=== PATIENT | female | born 1985 | race Caucasian/White ===

== ENCOUNTER 2018-11-16 12:15 | Emergency (ER) | payer MEDICAID ==
[2018-11-16 12:30] VITALS: BP 122/74
[2018-11-16] MEDS ORDERED: LIDOCAINE 2% VISCOUS SOLN 20 ML UDCUP PO ONE (13:27)
--- NOTE | 2018-11-16 13:30 | ER Document Report ---
HPI - HPI Time Seen by Provider: 11/16/18 13:17 Pain Level: 5 Notes: Patient is a 33-year-old female who presents to the ED complaining of left lower dental pain from 20-17 chronically but increased x1 day. She has not noticed any obvious abscess or purulent discharge. Patient states that she is still able to eat and drink, but does have a decreased p.o. intake due to the pain. She has tried some [id number] meds with minimal relief. Pt recently moved from [place] and has an appointment scheduled next week with a dentist. No other concerns or complaints. Denies any headache, fever, head injury, neck pain, hoarseness, drooling, URI, sore throat, chest pain, palpitations, syncope, cough, shortness of breath, wheeze, dyspnea, abdominal pain, nausea/vomiting/diarrhea, urinary retention, dysuria, hematuria, or rash. - ROS Systems Reviewed and Negative: Yes All other systems reviewed and negative - CONSTITUTIONAL Constitutional: DENIES: Fever, Chills - REPRODUCTIVE Reproductive: DENIES: : Past Medical History - Social History Smoking Status: Never Smoker Family History: Reviewed & Not Pertinent Patient has suicidal ideation: No Patient has homicidal ideation: No Renal/ Medical History: Denies: Hx Peritoneal Dialysis Vertical Provider Document - CONSTITUTIONAL Agree With Documented VS: Yes Notes: PHYSICAL EXAMINATION: GENERAL: Well-appearing, well-nourished and in no acute distress. HEAD: Atraumatic, normocephalic. EYES: Pupils equal round and reactive to light, extraocular movements intact, sclera anicteric, conjunctiva are normal. ENT: EAC clear b/l. TM's intact b/l without erythema, fluid, or perforation. Nares patent and without discharge. oropharynx clear without exudates. No tonsilar hypertrophy or erythema. Moist mucous membranes. No sinus tenderness. Uvula midline. No palatine shift. No tongue protrusion. No respiratory compromise. Mouth: Poor dentition. + Severe carotid and decayed teeth from 20-17 with mild gingivitis. No obvious abscess or discharge noted. No facial swelling. + tenderness to tooth #20-17. NECK: Normal range of motion, supple without lymphadenopathy. No rigidity/meningismus. LUNGS: Breath sounds clear to auscultation bilaterally and equal. No wheezes rales or rhonchi. HEART: Regular rate and rhythm without murmurs, rubs, gallops. NEUROLOGICAL: Cranial nerves grossly intact. Normal speech, normal gait. PSYCH: Normal mood, normal affect. SKIN: Warm, Dry, normal turgor, no rashes or lesions noted. - INFECTION CONTROL TRAVEL OUTSIDE OF THE [place] IN LAST 30 DAYS: No Course - Re-evaluation Re-evalutation: 11/16/18 13:28 Patient is an afebrile, well-hydrated, 33-year-old female who presents to the ED with dental pain, suspect nerve root etiology versus infection. Vitals are acce ptable. PE is otherwise unremarkable. No I&D, labs, or imaging warranted at this time based on H&P. Viscous lidocaine dispensed today. I will send her home with a prescription for penicillin and Motrin. Low suspicion for any meningitis, sepsis, peritonsillar/pharyngeal abscess, respiratory compromise, Harley's, temporal arteritis, or other emergent systemic condition at this time. Patient is aware this condition can change from initial presentation and he needs to monitor symptoms closely. Conservative measures otherwise for symptoms. Keep appointment with dentist. Recheck with your PCM this week as well. Return to the ED with any worsening/concerning symptoms otherwise as reviewed in discharge. Patient is in agreement. - Vital Signs Vital signs: Temp Pulse Resp BP Pulse Ox 98.6 F 75 16 122/74 95 11/16/18 12:29 11/16/18 12:29 11/16/18 12:29 11/16/18 12:29 11/16/18 12:29 Discharge - Discharge Clinical Impression: Pain, dental Condition: Stable Disposition: HOME, SELF-CARE Instructions: Toothache ([facility]), Penicillin V K ([facility]) Additional Instructions: [place] and floss twice daily Maintain fluid intake Take antibiotics as directed Mouthwash, salt water gargles, peroxide rinse as needed Tylenol/ibuprofen as needed Recheck with PCM this week Keep appointment with dentist* Return to the ED with any worsening symptoms and/or development of fever, headache, facial swelling, swelling of lips/tongue/throat, trouble swallowing, drooling, hoarseness, neck pain/stiffness, chest pain, palpitations, syncope, shortness of breath, trouble breathing, abdominal pain, n/v/d, numbness/tingling, or other worsening symptoms that are concerning to you. Prescriptions: Ibuprofen [Motrin 800 mg Tablet] 800 mg PO Q8H PRN #15 tab PRN Reason: Penicillin V Potassium [Penicillin Vk 250 mg Tablet] 500 mg PO BID #40 tablet Referrals: [facility] [Provider Group] - Follow up as needed
== END 2018-11-16 13:58 | disposition home or self-care (01) ==
LOC: ER 12:15
DX: K08.9 Disorder of teeth and supporting structures, unspecified (principal)
CPT/HCPCS: J3490

== ENCOUNTER 2019-02-26 20:14 | Emergency (ER) | payer MEDICAID ==
--- NOTE | 2019-02-26 20:50 | ER Document Report ---
ED Medical Screen (RME) - General Chief Complaint: Jaw Pain Stated Complaint: ABSCESS,JAW SWELLING Time Seen by Provider: 02/26/19 20:46 Mode of Arrival: Ambulatory Information source: Patient Notes: 33-year-old female presented to ED for complaint of pain and swelling to her left lower jaw with swelling to the neck. Patient is alert oriented respirations regular nonlabored speaking in full sentences walks with a even steady gait. She is no acute distress at this time. She is having no trouble swallowing or speaking. There is redness and swelling to the left side of her neck. She was seen in the emergency room yesterday and she was started on clindamycin yesterday at the urgent care for the dental pain and swelling. She does have an appointment in March to have her teeth removed. I have greeted and performed a rapid initial assessment of this patient. A comprehensive ED assessment and evaluation of the patient, analysis of test results and completion of medical decision making process will be conducted by an additional ED providers. TRAVEL OUTSIDE OF THE [place] IN LAST 30 DAYS: No Past Medical History Renal/ Medical History: Denies: Hx Peritoneal Dialysis Physical Exam - Vital signs Vitals: Temp Pulse Resp BP Pulse Ox 98.4 F 79 16 133/80 H 94 02/26/19 20:35 02/26/19 20:35 02/26/19 20:35 02/26/19 20:35 02/26/19 20:35 Course - Vital Signs Vital signs: Temp Pulse Resp BP Pulse Ox 98.4 F 79 16 133/80 H 94 02/26/19 20:35 02/26/19 20:35 02/26/19 20:35 02/26/19 20:35 02/26/19 20:35
[2019-02-26 21:32] LABS: ABSOLUTE EOSINOPHILS # (AUTO) 0.3 10^3/uL (0.0-0.6); ABSOLUTE LYMPHOCYTES (AUTO) 2.1 10^3/uL (0.5-4.7); ABSOLUTE MONOCYTES (AUTO) 0.5 10^3/uL (0.1-1.4); ABSOLUTE NEUT (AUTO) 5.6 10^3/uL (1.7-8.2); BASOPHILS % (AUTO) 0.5 % (0-2); EOSINOPHILS % (AUTO) 3.1 % (0-6); HEMATOCRIT 44.3 % (36.0-47.0); HEMOGLOBIN 15.2 g/dL (12.0-15.5); LYMPHOCYTES % (AUTO) 24.5 % (13-45); MEAN CORPUSCULAR HEMOGLOBIN 30.1 pg (27.0-33.4); MEAN CORPUSCULAR HGB CONC 34.2 g/dL (32.0-36.0); MEAN CORPUSCULAR VOLUME 88 fl (80-97); MONOCYTES % (AUTO) 6.2 % (3-13); PLATELET COUNT 249 10^3/uL (150-450); RED BLOOD COUNT 5.05 10^6/uL (3.72-5.28); RED CELL DISTRIBUTION WIDTH 13.9 % (11.5-14.0); SEGMENTED NEUTROPHILS % (AUTO) 65.7 % (42-78); TOTAL CELLS COUNTED % (AUTO) 100 %; WHITE BLOOD COUNT 8.6 10^3/uL (4.0-10.5)
[2019-02-26 21:56] LABS: ALBUMIN 4.2 g/dL (3.5-5.0); ALKALINE PHOSPHATASE 59 U/L (38-126); ANION GAP 15 (5-19); ASPARTATE AMINO TRANSFERASE 19 U/L (14-36); BILIRUBIN,DIRECT 0.3 mg/dL (0.0-0.4); BILIRUBIN,TOTAL 0.4 mg/dL (0.2-1.3); BLOOD UREA NITROGEN 9 mg/dL (7-20); CALCIUM 9.8 mg/dL (8.4-10.2); CARBON DIOXIDE 23 mmol/L (22-30); CHLORIDE 106 mmol/L (98-107); GLUCOSE 108 mg/dL (75-110); POTASSIUM 4.2 mmol/L (3.6-5.0); TOTAL PROTEIN 7.4 g/dL (6.3-8.2)
[2019-02-27] MEDS ORDERED: CLINDAMYCIN 600 MG/D5W RTU 600 MG/50 ML RTUPB IV ONE (01:12)
[2019-02-27] MEDS ORDERED: MORPHINE SULFATE 10 MG/ML INJ IV ONE (01:12)
[2019-02-27] MEDS ORDERED: ONDANSETRON HCL INJ/PF 4 MG/2 ML SDV IV ONE (01:12)
--- NOTE | 2019-02-27 01:14 | ER Document Report ---
ED ENT - General Chief Complaint: Abscess Stated Complaint: ABSCESS,JAW SWELLING Time Seen by Provider: 02/26/19 20:46 Mode of Arrival: Ambulatory Notes: Patient is a 33-year-old female that comes to the emergency department for chief complaint of swelling to the left cheek and underneath her chin, she states she was seen by urgent care, placed on an clindamycin, she states that she took 2 doses last night and 1 dose this morning but has not had any since. She states it has worsened since yesterday and she became concerned. She has terrible dentition and is supposed to have all of her teeth pulled and dentures provided but this has not happened yet. She denies fevers, she denies any other complaints. She reports a history of asthma, denies medical history otherwise. TRAVEL OUTSIDE OF THE [place] IN LAST 30 DAYS: No - Related Data Allergies/Adverse Reactions: No Known Allergies Allergy (Unverified 02/27/19 01:24) Home Medications: Currently taking Clindamycin for infection Past Medical History - General Information source: Patient - Social History Smoking Status: Unknown if Ever Smoked Frequency of alcohol use: None Drug Abuse: None Lives with: Family Family History: Reviewed & Not Pertinent Patient has suicidal ideation: No Patient has homicidal ideation: No Pulmonary Medical History: Reports: Hx Asthma Renal/ Medical History: Reports: Hx Kidney Stones. Denies: Hx Peritoneal Dialysis - Immunizations Immunizations up to date: Yes Hx Diphtheria, Pertussis, Tetanus Vaccination: Yes Review of Systems - Review of Systems Constitutional: No symptoms reported EENT: See HPI Cardiovascular: No symptoms reported Respiratory: No symptoms reported Gastrointestinal: No symptoms reported Genitourinary: No symptoms reported Female Genitourinary: No symptoms reported Musculoskeletal: No symptoms reported Skin: No symptoms reported Hematologic/Lymphatic: No symptoms reported Neurological/Psychological: No symptoms reported Physical Exam - Vital signs Vitals: Temp Pulse Resp BP Pulse Ox 98.4 F 79 16 133/80 H 94 02/26/19 20:35 02/26/19 20:35 02/26/19 20:35 02/26/19 20:35 02/26/19 20:35 - Notes Notes: GENERAL: Alert, interacts well. No acute distress. HEAD: Normocephalic, atraumatic. EYES: Pupils equal, round, and reactive to light. Extraocular movements intact. ENT: Oral mucosa moist, tongue midline. Oropharynx unremarkable. Airway patent. Nares patent, no nasal septal hematoma, TM's intact. Terrible dentition throughout with multiple dental caries. There is some left-sided soft tissue swelling at the left mandible and submandibular area. Submental area is normal. There is tenderness along the left lower gumline but there is no drainable abscess noted. Patent airway. NECK: Full range of motion. Supple. Trachea midline. LUNGS: Clear to auscultation bilaterally, no wheezes, rales, or rhonchi. No respiratory distress. HEART: Regular rate and rhythm. No murmur ABDOMEN: Soft, non-tender. Non-distended. EXTREMITIES: Moves all 4 extremities spontaneously. No edema, normal radial and dorsalis pedis pulses bilaterally. No cyanosis. BACK: no cervical, thoracic, lumbar midline tenderness. No saddle anesthesia, normal distal neurovascular exam. Moves all extremities in full range of motion. NEUROLOGICAL: Alert and oriented x3. Normal speech. Cranial nerves II through XII grossly intact. PSYCH: Normal affect, normal mood. SKIN: Warm, dry, normal turgor. No rashes or lesions noted. Course - Re-evaluation Re-evalutation: Imaging showing left-sided submandibular swelling and questionable tiny bocanegra bperiosteal abscess developing. CBC, chemistry unremarkable. test negative. Patient does have some mild soft tissue swelling mainly over the left side of the face and jaw and underneath this, submental area is unremarkable. There is no evidence of Ludewig's angina on exam. There is no palpable abscess on the oral exam but there is some tenderness along the left lower gumline. There is terrible dentition throughout. Because of concern of abscess I discussed with Dr. Gonzalez. He reviewed the study. He states he does not feel like there is a developing abscess and he recommends dexamethasone and Unasyn and reevaluation. After dexamethasone and Unasyn patient swelling completely resolved. She has not current complaints other than some general pain over the gumline. She sta robert she feels much better and wants to go home. I discussed with Dr. Gonzalez. He recommends discharge on Augmentin with dental follow-up and return precautions. Discussed with patient. She states understanding and agreement with plan. - Vital Signs Vital signs: Temp Pulse Resp BP Pulse Ox 98.4 F 70 16 117/74 94 02/27/19 04:50 02/27/19 04:50 02/27/19 04:50 02/27/19 04:50 02/27/19 04:50 - Laboratory Result Diagrams: 02/26/19 21:20 02/26/19 21:20 Discharge - Discharge Clinical Impression: Dental infection, Left facial swelling Condition: Stable Disposition: HOME, SELF-CARE Additional Instructions: Take the Augmentin antibiotic to completion. Stop the clindamycin. Follow-up with the listed referral below, call to set up your appointment. Come back if you worsen in any way including returned or worsening swelling, difficulty swallowing or breathing, fever, or any other concerning or worsening symptoms. [facility] , [place] [address] Closed Opens 8AM Mon Prescriptions: Amox Tr/Potassium Clavulanate [Augmentin 875-125 Tablet] 1 tab PO BID 7 Days #14 tablet Hydrocodone/Acetaminophen [[place] 5-325 mg Tablet] 1 - 2 tab PO ASDIR #12 tablet
--- NOTE | 2019-02-27 02:18 | RADIOLOGY REPORT (SQ) ---
EXAM: CT neck with intravenous contrast CLINICAL DATA: 33-year-old female with dental pain and soft tissue swelling of left side of neck. TECHNICAL DATA: CT imaging of the soft tissues of the neck were performed following the administration of intravenous contrast..The CT study is performed according to ALARA (as low as reasonably achievable) or ALARA/IMAGE GENTLY, with automatic adjustment of mA and/or kV according to patient size. Performed on: 02/27/2019 at 1:32 AM Comparisons: None. FINDINGS: The visualized portions of the brain and orbits are normal. The oral cavity, oropharynx and nasopharynx are normal. Some portions of the oral cavity and oropharynx are obscured by streak artifact related to the patient's dental hardware. The parapharyngeal fat planes are preserved. The hypopharynx is unremarkable. The parotid and submandibular glands are grossly within normal limits. No intrinsic mass lesions are seen. . The carotid sheaths are normal bilaterally. The epiglottis and aryepiglottic folds are normal. The vallecula and pyriform sinuses are grossly normal. The preepiglottic fat is preserved. The thyroid, cricoid and arytenoid cartilages are normal. The region of the false and true vocal cords is normal as is the anterior commissure. The paranasal sinuses and mastoid air cells are clear. There are prominent submandibular and level II lymph nodes bilaterally which are likely reactive inflammatory in nature. The thyroid gland is normal in size and configuration. The thoracic inlet is normal. The superior mediastinum and lung apices are normal. There is scattered diffuse periodontal disease. There are lucencies surrounding numerous teeth and there are multiple cavities. There is soft tissue swelling surrounding the left hemimandible and submandibular region. There is decreased attenuation adjacent to the left hemimandible best appreciated on the sagittal and coronal reconstructed images (series 300, image 46 and series 301, image 16). Potentially this could represent a very small developing subperiosteal abscess. This measures approximately 1 cm in diameter. This is difficult to appreciate on the axial images. IMPRESSION: 1. Soft tissue swelling surrounding the left hemimandible and submandibular region. There is a small focal area of decreased attenuation adjacent to the left hemimandible as described above which could potentially represent a very small developing subperiosteal abscess. This measures approximately 1 cm in diameter. 2. Multiple prominent submandibular and level II lymph nodes bilaterally which are likely reactive inflammatory in nature. 3. Extensive periodontal disease.
[2019-02-27] MEDS ORDERED: DEXAMETHASONE SOD PHOS INJ 10 MG/1 ML VIAL IV ONE (02:53)
[2019-02-27] MEDS ORDERED: AMPICILLIN SOD/SULBACTAM 3 GM VIAL IV ONE (02:53)
[2019-02-27 04:50] VITALS: BP 117/74
== END 2019-02-27 04:54 | disposition home or self-care (01) ==
LOC: ER 20:14
DX: K04.7 Periapical abscess without sinus (principal); K02.9 Dental caries, unspecified; R22.0 Localized swelling, mass and lump, head; J45.909 Unspecified asthma, uncomplicated
CPT/HCPCS: 99284; 96375; 96365; 96367; 36415; 84702; 85025; 80053; 70491; S0077; J0295; J2270; J2405; J1100